=== PATIENT | female | born 1965 | race Caucasian/White ===

== ENCOUNTER → 2016-12-17 | Outpatient (CLI) | payer MEDICAID ==
--- NOTE | 2016-12-22 06:54 | MM ---
Reason for exam: follow-up at short interval from prior study. Last mammogram was performed 7 months ago. History: Family history of breast cancer in maternal grandmother at age 80 and breast cancer in maternal aunt at age 60. Benign left mammotome panel of the left breast, May 31, 2008. Took hormonal contraceptives for 21 years beginning at age 18. Taking other hormone for 22 years beginning at age 20. Physical Findings: Nurse did not find any significant physical abnormalities on exam. MG Diagnostic Mammo RT w CAD CC, MLO, ML, spot compression MLO, and spot compression CC view(s) were taken of the right breast. Prior study comparison: May 08, 2016, right breast US breast RT. May 08, 2016, bilateral MG 3d diag mammo w/cad BUTCH. May 09, 2015, right breast US breast limited RT. May 09, 2015, bilateral MG 3d diag mammo w/cad BUTCH. December 16, 2012, bilateral digital screening mammo w/CAD. The breast tissue is heterogeneously dense. This may lower the sensitivity of mammography. Superior asymmetric density persists at a middle depth. No definite persisting abnormality on additional views. Precautionary 6 month follow up recommended. More vague areas of asymmetric density at the axillary tail remain unchanged from 04/24/15 suggesting a benign etiology. These results were verbally communicated with the patient and result sheet given to the patient on 12/17/16. ASSESSMENT: Probably benign, BI-RAD 3 RECOMMENDATION: Follow-up diagnostic mammogram of both breasts in 6 months. Back on schedule for April 2017.
== END | disposition home or self-care (01) ==
LOC: RADMAMWWP 12:54
PROVIDERS: ATTEND Obstetrics & Gynecology
DX: R92.8 Other abnormal and inconclusive findings on diagnostic imaging of breast (principal)

== ENCOUNTER → 2017-07-07 | Outpatient (CLI) | payer MEDICAID | END | disposition home or self-care (01) | LOC: LABWHC1 09:51 | PROVIDERS: ATTEND Internal Medicine Endocrinology, Diabetes & Metabolism | DX: E03.8 Other specified hypothyroidism (principal) | CPT/HCPCS: 36415; 84443 ==

== ENCOUNTER → 2017-09-09 | Outpatient (CLI) | payer MEDICAID | LOC: LABWHC1 08:36 | PROVIDERS: ATTEND Internal Medicine Endocrinology, Diabetes & Metabolism | DX: E55.9 Vitamin D deficiency, unspecified (principal); E03.8 Other specified hypothyroidism | CPT/HCPCS: 36415; 82306; 84443 ==

== ENCOUNTER → 2017-12-12 | Outpatient (CLI) | payer MEDICAID | END | disposition home or self-care (01) | LOC: LABWHC1 11:35 | PROVIDERS: ATTEND Internal Medicine Endocrinology, Diabetes & Metabolism | DX: E03.8 Other specified hypothyroidism (principal); E55.9 Vitamin D deficiency, unspecified | CPT/HCPCS: 36415; 82306; 84443 ==

== ENCOUNTER → 2018-06-11 | Outpatient (CLI) | payer MEDICAID | END | disposition home or self-care (01) | LOC: LABWHC1 14:30 | PROVIDERS: ATTEND Internal Medicine Endocrinology, Diabetes & Metabolism | DX: E03.8 Other specified hypothyroidism (principal) | CPT/HCPCS: 36415; 84443 ==

== ENCOUNTER → 2018-06-21 | Outpatient (CLI) | payer MEDICAID ==
--- NOTE | 2018-06-22 07:27 | MM ---
Reason for exam: additional evaluation requested from prior study. Last mammogram was performed 1 year and 6 months ago. History: Family history of breast cancer in maternal grandmother at age 80 and breast cancer in maternal aunt at age 60. Benign left mammotome panel of the left breast, May 31, 2008. Took hormonal contraceptives for 21 years beginning at age 18. Taking other hormone for 22 years beginning at age 20. Physical Findings: Nurse did not find any significant physical abnormalities on exam. MG Diagnostic Mammo w CAD BUTCH Bilateral CC and MLO view(s) were taken. Prior study comparison: December 17, 2016, right breast MG diagnostic mammo RT w CAD. May 08, 2016, bilateral MG 3d diag mammo w/cad BUTCH. The breast tissue is heterogeneously dense. This may lower the sensitivity of mammography. Previous mammotome biopsy in the left breast. There is chronic nodularity bilaterally. There is no dominant lesion. No significant new findings when compared with previous films. These results were verbally communicated with the patient and result sheet given to the patient on 06/21/18. ASSESSMENT: Benign, BI-RAD 2 RECOMMENDATION: Follow-up diagnostic mammogram of both breasts in 1 year.
--- NOTE | 2018-06-22 08:50 | BD ---
EXAMINATION TYPE: Axial Bone Density DATE OF EXAM: 06/21/2018 COMPARISON: 2013 CLINICAL HISTORY: post menopausal Height: 5'4 Weight: 161 FRAX RISK QUESTIONS: Secondary Osteoporosis: RISK FACTORS HISTORY OF: Family History of Osteoporosis: y Postmenopausal woman: y MEDICATIONS: Thyroid Medications: Which medication: Levothyroxine How Lon years Additional Medications: Additional History: EXAM MEASUREMENTS: Bone mineral densitometry was performed using the Keypr System. Bone mineral density as measured about the Lumbar spine is: ----- L1-L4(G/cm2): 0.979 T Score Values are as follows: ----- L2: -1.7 ----- L3: -1.3 ----- L4: -2.1 ----- L1-L4: -1.7 Bone mineral density has: Decreased -7.7% since study of: 03/01/2014 Bone mineral density about the R hip (g/cm2): 0.913 Bone mineral density about the L hip (g/cm2): 0.893 T Score values are as follows: -----R Neck: -0.9 -----L Neck: -1.0 -----R Total: -1.2 -----L Total: -1.4 Bone mineral density has: Decreased -1.8% since study of: 03/01/2014 IMPRESSION: Osteopenia (T Score between -2.5 and -1) remains present. Bone density is decreased or diminished fro m prior. There remains slightly increased risk of fracture and the patient may be considered for treatment. Re-Screen 2-5 years. NOTE: T-SCORE=SD OF THE YOUNG ADULT MEAN.
== END | disposition home or self-care (01) ==
LOC: RADMAMWWP 15:39
PROVIDERS: ATTEND Obstetrics & Gynecology
DX: R92.8 Other abnormal and inconclusive findings on diagnostic imaging of breast (principal); Z13.820 Encounter for screening for osteoporosis; M85.80 Other specified disorders of bone density and structure, unspecified site; N95.1 Menopausal and female climacteric states
CPT/HCPCS: 77066; 77080

== ENCOUNTER → 2018-12-20 | Outpatient (CLI) | payer MEDICAID | END | disposition home or self-care (01) | LOC: LABWHC1 14:42 | PROVIDERS: ATTEND Internal Medicine Endocrinology, Diabetes & Metabolism | DX: E03.8 Other specified hypothyroidism (principal); E55.9 Vitamin D deficiency, unspecified | CPT/HCPCS: 36415; 82306; 84443 ==

== ENCOUNTER → 2019-03-28 | Outpatient (CLI) | payer MEDICAID | END | disposition home or self-care (01) | LOC: LABWHC1 13:59 | PROVIDERS: ATTEND Internal Medicine Endocrinology, Diabetes & Metabolism | DX: E03.8 Other specified hypothyroidism (principal); E55.9 Vitamin D deficiency, unspecified | CPT/HCPCS: 36415; 82306; 84443 ==

== ENCOUNTER → 2019-07-05 | Outpatient (CLI) | payer MEDICAID | END | disposition home or self-care (01) | LOC: LABWHC1 15:42 | PROVIDERS: ATTEND Internal Medicine Endocrinology, Diabetes & Metabolism | DX: E55.9 Vitamin D deficiency, unspecified (principal); E03.8 Other specified hypothyroidism | CPT/HCPCS: 36415; 82306; 84439; 84443 ==

== ENCOUNTER → 2019-07-26 | Outpatient (CLI) | payer MEDICAID ==
--- NOTE | 2019-07-27 10:03 | MM ---
Reason for exam: screening (asymptomatic). Last mammogram was performed 1 year and 1 month ago. History: Family history of breast cancer in maternal grandmother at age 80 and breast cancer in maternal aunt at age 60. Benign left mammotome panel of the left breast, May 31, 2008. Took hormonal contraceptives for 21 years beginning at age 18. Taking other hormone for 22 years beginning at age 20. Physical Findings: A clinical breast exam by your physician is recommended on an annual basis and results should be correlated with mammographic findings. MG 3D Screening Mammo W/Cad Bilateral CC and MLO view(s) were taken. Prior study comparison: June 21, 2018, bilateral MG diagnostic mammo w CAD BUTCH. December 17, 2016, right breast MG diagnostic mammo RT w CAD. There are benign appearing round oval circumscribed stable bilateral masses. Benign appearing calcifications in the right breast. No suspicious abnormality. Left biopsy marker noted. No significant changes when compared with prior studies. ASSESSMENT: Benign, BI-RAD 2 RECOMMENDATION: Routine screening mammogram of both breasts in 1 year.
== END | disposition home or self-care (01) ==
LOC: RADMAMWWP 15:19
PROVIDERS: ATTEND Obstetrics & Gynecology
DX: Z12.31 Encounter for screening mammogram for malignant neoplasm of breast (principal); Z80.3 Family history of malignant neoplasm of breast
CPT/HCPCS: 77063; 77067

== ENCOUNTER → 2019-09-22 | Outpatient (CLI) | payer MEDICAID ==
[2019-09-22 20:06] LABS: T4, Free (Free Thyroxine) 1.7 ng/dL (0.80-1.80)
== END | disposition home or self-care (01) ==
LOC: LABWHC1 11:51
PROVIDERS: ATTEND Internal Medicine Endocrinology, Diabetes & Metabolism
DX: E03.8 Other specified hypothyroidism (principal); E55.9 Vitamin D deficiency, unspecified
CPT/HCPCS: 36415; 82306; 84439; 84443

== ENCOUNTER → 2020-02-09 | Outpatient (CLI) | payer MEDICAID ==
--- NOTE | 2020-02-09 09:43 | MR ---
EXAMINATION TYPE: MR lumbar spine wo con DATE OF EXAM: 02/09/2020 COMPARISON: NONE HISTORY: Low Back Pain, lumbar region radiculopathy, muscle spasm, and other intervertebral disc dege neration all per order. Low back pain for 10 months causing pain into both buttocks. TECHNIQUE: Multiplanar, multisequence imaging of the lumbar spine is performed without IV contrast. FINDINGS: Sagittal images of the lumbar spine show vertebral body heights to appear satisfactory. Sli ght grade 1 retrolisthesis L5 on S1 along posterior vertebral body margin Multilevel disc desiccation is present. Moderate disc space narrowing L5-S1 level. The conus medullaris is normal in position an d signal ending at mid L1 level. Few small scattered tiny hemangiomas for reference L4 vertebrae ante riorly sagittal image 8. There is 1.1 cm right S2 Tarlov cyst sagittal image 11. There is heterogeneo us Modic type II endplate changes L5-S1 level right of midline. Axial images show T12-L1, L1-L2, and L2-L3 levels all to appear within normal limits. Axial images at the L3-L4 level show mild facet arthropathy bilaterally. Axial images at the L4-L5 level show mild/moderate broad-based left paracentral disc protrusion minim ally effaces the anterior thecal sac. There is mild facet arthropathy bilaterally. Bilateral neural f oramina are patent. Axial images at the L5-S1 level shows subtle spondylolisthesis with mild broad-based posterior disc p rotrusion. Spinal canal is preserved. Bilateral neural foramina show mild anterior inferior neural fo raminal narrowing. Paraspinal muscle bulk fairly well maintained. There is extrarenal pelvis felt present bilaterally in both kidneys. IMPRESSION: [id number] multilevel degenerative changes mid to lower lumbar spine as detailed ab ove, no definitive exiting nerve impingement identified.
== END | disposition home or self-care (01) ==
LOC: RADMRIMAIN 07:26
PROVIDERS: ATTEND Orthopaedic Surgery Orthopaedic Surgery of the Spine
DX: M47.26 Other spondylosis with radiculopathy, lumbar region (principal); M46.96 Unspecified inflammatory spondylopathy, lumbar region; M43.16 Spondylolisthesis, lumbar region; M62.830 Muscle spasm of back
CPT/HCPCS: 72148

== ENCOUNTER → 2020-03-01 | Outpatient (CLI) | payer MEDICAID | END | disposition home or self-care (01) | LOC: LABWHC1 09:06 | PROVIDERS: ATTEND Pediatrics Pediatric Infectious Diseases | DX: Z03.818 Encounter for observation for suspected exposure to other biological agents ruled out (principal) | CPT/HCPCS: U0003; C9803 ==

== ENCOUNTER → 2020-03-07 | Outpatient (CLI) | payer MEDICAID ==
[2020-03-07 11:02] VITALS: BP 158/85; PULSE 81; RESP 16; TEMP 98
--- NOTE | 2020-03-07 11:49 | P.PAINCN ---
History of Present Illness - Reason for Consult Consult date: 03/07/20 - History of Present Illness Sujey is a very pleasant 54-year-old female presenting today as a new patient consult. She is a nurse in the operating room. She reports that 2 times over the last 6-8 months she's had very severe back pain with lower extremity weakness. She reports that when those events came on that lasted for about 3-5 days when she has severe pain and weakness in her legs. She has seen Dr. Hubbard for evaluation. Order MRI of the lumbar spine which really did not show any severe stenosis. There was some mild disc bulging with facet joint arthropathy. There is no evidence of any severe neural foraminal stenosis or any central canal stenosis. She has a history of urinary incontinence which is been treated well. She has complaints of urinary urgency. She denies any bowel or bladder incontinence in relation to her back pain. At this point she really does not have any back pain. She is physically strong reports she's doing very well but this is worried about this happening again. She denies any neck pain. Denies any upper mid back pain. Denies any numbness tingling in her upper extremities. She denies any family history of any myopathy or any illnesses such as multiple sclerosis or ALS. She does not use any pain medication. She works full-time. Review of Systems Negative except as noted in the HPI Past Medical History Past Medical History: Musculoskeletal Disorder, Thyroid Disorder Additional Past Medical History / Comment(s): HYPOTHYROID. History of Any Multi-Drug Resistant Organisms: None Reported Past Surgical History: Bladder Surgery, Hysterectomy Additional Past Surgical History / Comment(s): COLONOSCOPY, bladder sling Past Anesthesia/Blood Transfusion Reactions: No Reported Reaction Additional Past Anesthesia/Blood Transfusion Reaction / Comm: HAS NEVER HAD GENERAL ANESTHESIA. Smoking Status: Former smoker - Past Family History Father Family Medical History: Prostate Disorder Mother Family Medical History: Cancer Additional Family Medical History / Comment(s): COLON, BONE. Medications and Allergies Home Medications Medication Instructions Recorded Confirmed Type Levothyroxine Sodium [Synthroid] 150 mcg PO DAILY 07/30/15 03/07/20 History Ergocalciferol [Vitamin D2] 50,000 unit PO Q14D 03/02/20 03/07/20 History Allergies Allergy/AdvReac Type Severity Reaction Status Date / Time No Known Allergies Allergy Verified 03/02/20 14:59 Physical Exam Vitals: Vital Signs Temp Pulse Resp BP Pulse Ox 03/07/20 10:57 98.0 F 81 16 158/85 98 PHYSICAL EXAM: Constitutional: Awake and alert no distress Cardiovascular exam: Regular rate, no lower extremity edema, palpable pulses bilaterally Respiratory exam: No audible wheezing, no accessory muscle usage Abdominal exam: Soft nontender Muscular skeletal exam: - Cervical spine: Nontender to palpation bilaterally. Range of motion is not limited. Spurling is negative bilateral. Facet loading is negative bilaterally - Lumbar spine: Preserved lumbar lordosis. No changes in skin. Nontender palpation bilateral. Patient has full range of motion in flexion and extension as well as lateral sidebending. Straight leg raise is negative. Facet loading is negative. Nontender over the SI joints. RICHIE Negative, Gaenselons negative, SI Joint compression negative. Hip range of motion bilaterally is normal. There is no pain with internal/external rotation or extension and flexion. Neuro exam: Normal sensation bilateral upper and lower extremities. Deep tendon reflexes are 2+ bilaterally. Armando's is negative Psychiatric exam: Cooperative, good insight Assessment and Plan Assessment: #1 low back pain #2 possible neurogenic claudication Plan: Had along discussion with patient regarding her symptoms. Thankfully symptoms are not being on too often. She had an MRI of the lumbar spine did not give any insight into what the issue is. I discussed with her that like for her to persist pain a short course of physical therapy to improve her overall strength. She does not to go to therapy for long present time but just enough to get home exercise routines down. She has very strong physically does not exhibit any signs of weakness. Also discussed that since the MRI of the lumbar spine did not show any signs of weakness she may be a candidate for an MRI the thoracic spine to rule out any thoracic pathology which could explain the lower extremity weakness which comes and goes. I've asked the patient follow-up with us as needed and to reach out anyone of the pain physicians on a regular basis if she has questions while in the operating room. PQRS Measure Charge Sheet Measure #130: Documentation of Current Meds in Medical Chart: Patient's medications documented in chart Measure #226: Tobacco Use: Screen & Cessation Intervention: Pt screened for tobacco use AND intervention given Measure #111: Pneumonia Vaccination: Pneumococcal vaccine administered or previously received Measure #47: Advance Care Plan: Advance care planning discussed & documented, plan or surrogate given Measure #412: Opioid Treatment Agreement: Documented signed opioid trtmnt agreemnt min once during opioid trtmnt Measure #408: Opioid Therapy Follow-up Evaluation: Patient had NO f/u eval minimum every 3 months during opioid therapy Measure #317: Preventitive Care & Scrn High Bld Press & F/U: Normal blood pressure, f/u not required Measure #128: Body Mass Index (BMI) Screening & Follow-up: BMI documented ABOVE normal parameters - f/u documented Measure #131: Pain Assessment & Follow-up: Pain positive & plan documented Measure #431: Unhealthy Alcohol Use Preventative Care & Scrn: Patient not identified as an unhealthy alcohol user PQRS Narrative: Smoking Status Former smoker Blood Pressure 158/85 Pain Intensity [None] 0 Scale Used Numeric (1 - 10) Hx Alcohol Use (MH) Yes Home Medications: Ambulatory Orders Levothyroxine Sodium [Synthroid] 150 mcg PO DAILY 07/30/15 Ergocalciferol [Vitamin D2] 50,000 unit PO Q14D 03/02/20
== END | disposition home or self-care (01) ==
LOC: PNWHC3 10:06
PROVIDERS: ATTEND Hospitalist
DX: M54.5 Low back pain (principal); Z79.891 Long term (current) use of opiate analgesic; Z79.890 Hormone replacement therapy; Z79.899 Other long term (current) drug therapy
CPT/HCPCS: 99211

== ENCOUNTER 2020-04-12 09:20 | Day surgery (SDC) | payer MEDICAID ==
[2020-04-06 17:44] VITALS: BMI 26.6
[~2020-04-12 09:20] MED LIST: LACTATED RINGERS 1,000 ML IV SCH
[2020-04-12 09:36] VITALS: RESP 16; TEMP 98.5
[2020-04-12] MEDS ORDERED: LIDOCAINE 1% INJ 10MG/ML (20 ML MDV) ONE (10:05)
[2020-04-12] MEDS ORDERED: PROPOFOL 10 MG/ML 20 ML VIAL IV ONE (10:05)
--- NOTE | 2020-04-12 10:31 | P.PCN ---
Date of Procedure: 04/12/20 Procedure(s) Performed: BRIEF HISTORY: Patient is a 54-year-old pleasant white female scheduled for an elective colonoscopy as a part of screening for colon rectal neoplasia and family history of colon cancer. Her mother was diagnosed with colon cancer at age 60. PROCEDURE PERFORMED: Colonoscopy. PREOPERATIVE DIAGNOSIS: Screening for colon cancer/family history of colon cancer. IV sedation per Anesthesia. PROCEDURE: After informed consent was obtained, the patient, was brought into the endoscopy unit. IV sedation was administered by Anesthesia under continuous monitoring. Digital rectal examination was normal. Initially the Olympus CF-160 flexible video colonoscope was then inserted in the rectum, gradually advanced into the cecum without any difficulty. Careful examination was performed as the scope was gradually being withdrawn. Ileocecal valve and the appendiceal orifice were visualized and appeared normal. Prep was excellent. Mucosa of the cecum, ascending colon, transverse colon, descending colon, sigmoid colon, and rectum appeared normal. Retroflexion was performed in the rectum and no lesions were seen. The patient tolerated the procedure well. IMPRESSION: Normal-appearing colon from rectum to cecum with no evidence of colorectal neoplasia . RECOMMENDATIONS: Findings of this examination were discussed with the patient as well as a family. She was advised to have a repeat screening colonoscopy in 5 years from now because of the family history of colon cancer..
[2020-04-12 11:12] VITALS: BP 149/91; PULSE 68
== END 2020-04-12 11:45 | disposition home or self-care (01) ==
LOC: ORWHC2ENDO 09:20
PROVIDERS: ATTEND Internal Medicine Gastroenterology
DX: Z12.11 Encounter for screening for malignant neoplasm of colon (principal); E07.9 Disorder of thyroid, unspecified; Z79.890 Hormone replacement therapy; Z90.710 Acquired absence of both cervix and uterus; Z80.0 Family history of malignant neoplasm of digestive organs
CPT/HCPCS: J2001; J2704; G0105; 45378

== ENCOUNTER → 2020-06-05 | Outpatient (CLI) | payer MEDICAID ==
--- NOTE | 2020-06-05 18:43 | CONS ---
CONSULTATION REASON FOR CONSULTATION: Sleep apnea. 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 She is feeling tired and fatigued all the time. She is excessively tired and sleepy. Family members have told her that she snores and quits breathing at night. She also wakes up gasping for air and with a choking sensation. She does have nocturia. She wakes up with a dry mouth. At times she is having trouble with concentration and memory and she is waking up very tired during the day. 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 She goes to bed between midnight and 1 a.m. and she wakes up between 5:45 and 6 a.m. in the morning. On weekends she sleeps between 1 a.m. and 10 a.m. She has no other major medical problems or comorbidities. No recent weight gain or weight loss. She prefers to sleep on her side. No history of alcoholism. No sleep paralysis, hallucinations or cataplexy. She is coming in to be further investigated. PAST MEDICAL HISTORY: Hypothyroidism. PAST SURGICAL HISTORY: Past surgical history includes hysterectomy, bladder suspension surgery and colonoscopy. DRUG ALLERGIES: NOT KNOWN. OUTPATIENT MEDICATION: Outpatient medication includes Tirosint 125 mcg p.o. daily and vitamin D2 50,000 units once a month. SOCIAL HISTORY: Nonsmoker. No history of alcoholism. No history of IV drugs. She quit smoking in 1991. FAMILY HISTORY: Positive for sleep apnea in her mother, cancer in her father, and her father has brain cancer. Diabetes in her mother and brother. Restless legs in the brother and hypertension in her mother. REVIEW OF SYSTEMS: Fourteen-point review of systems was done. Positive findings are all mentioned above in the history of present illness. Otherwise it is negative. Positive findings are all mentioned above. No fever. No chills. No constitutional symptoms. No sleepwalking or sleeptalking. No grinding of the teeth. No chronic anxiety or panic attacks. No history of any mental health issues for the time being. PHYSICAL EXAMINATION: BP is 143/88, pulse 81, respirations 12, temperature 98.4, saturation 99% on room air. BMI is 28.3. Neck size 14-1/2 inches. [place] score is 12. Weight is 166, height is 5 feet 4 inches. GENERAL APPEARANCE: Calm, comfortable. HEAD: Atraumatic, normocephalic. NECK: Supple. No JVD. No goiter or neck masses. Mallampati class IV. LUNGS: Clear to auscultation. HEART: Heart sounds are regular rate and rhythm. Normal S1, S2. No S3, S4. No murmurs. ABDOMEN: Soft, nontender. No organomegaly. EXTREMITIES: No edema. No cyanosis or clubbing. NEUROLOGIC: Awake and alert. There is no focal neurological deficit. IMPRESSION: 1. Loud snoring with symptoms to suggest obstructive sleep apnea, including sleep fragmentation, excessive daytime hypersomnia and sleepiness. [place] score is at 12. 2. Mallampati score is IV. 3. Body mass index is 28.3. 4. Hypothyroidism. PLAN: 1. Proceed with a screening polysomnogram. 2. I noted that the patient has a component of insufficient sleep syndrome. The patient needs to extend her sleep hours to an average of 7-8 hours per night. It seems that she is sleeping longer at night on weekends, and this is an obvious sign of insufficient sleep syndrome that needs to be worked on. 3. Further recommendations are to follow based on the results of the sleep study. MMODL / IJN: [id number] /
== END | disposition home or self-care (01) ==
LOC: SLEEP 15:24
PROVIDERS: ATTEND Internal Medicine Critical Care Medicine
DX: G47.33 Obstructive sleep apnea (adult) (pediatric) (principal); E03.9 Hypothyroidism, unspecified
CPT/HCPCS: 99211

== ENCOUNTER → 2020-08-14 | Outpatient (CLI) | payer MEDICAID | END | disposition home or self-care (01) | LOC: LABWHC1 13:36 | PROVIDERS: ATTEND Internal Medicine Endocrinology, Diabetes & Metabolism | DX: E03.8 Other specified hypothyroidism (principal); E55.9 Vitamin D deficiency, unspecified | CPT/HCPCS: 36415; 82306; 84443 ==

== ENCOUNTER → 2020-10-30 | Outpatient (CLI) | payer MEDICAID ==
--- NOTE | 2020-10-30 15:27 | PN ---
PROGRESS NOTE A 55-year-old female patient coming in for a compliance check regarding her new CPAP unit that she was offered after diagnosis of sleep apnea. Note that the patient presented to me with loud snoring and chronic hypersomnia and sleepiness and sleep bed fragmentation. She was found to have moderate severe disease, moderately severe obstructive sleep apnea with an AHI of 28. Nevertheless, during REM sleep, her AHI was as high as 64. As such, the patient was offered CPAP therapy at a pressure of 9 cm of water. She tells me that since she went on a CPAP, her sleep fragmentation has completely recovered to the point where the patient is not waking up at all in the middle of the night and she is not even utilizing the bathroom. She has been averaging around 7.5 hours of CPAP use per night. Her CPAP compliancy for more than 4 hours is 100%. Her leak is in order of 22 L/minute and her AHI is down to 3. She is using an AirFit P10 nasal pillows. On today's evaluation I offered her the AirFit N30 under the nose mask. She did prefer the 2nd over the 1st and she is willing to give it a try. Her [place] score has been a drop and she is still having some movements where she gets tired and sleepy during the day and she is hoping that with this will get better after as the patient gets more and more into her CPAP unit. REVIEW OF SYSTEMS: Fourteen-point review of system was done. Positive findings are all mentioned above history of present illness. Her weight is up by around a few pounds in the order of 5- 6 pounds since her last evaluation. PHYSICAL EXAMINATION: VITAL SIGNS: BP is 152/89, pulse 88, respirations 16, temperature 97.4, and weight is 172 an [place] score of 16. GENERAL APPEARANCE: Calm, comfortable. HEENT: Head atraumatic normocephalic. NECK: Supple Mallampati class 4. There is no goiter or neck masses. LUNGS: Diminished, otherwise clear. HEART: Heart sounds are regular rate and rhythm. Normal S1, S2. No S3, S4. No murmurs. ABDOMEN: Soft nontender, no organomegaly. EXTREMITIES: No edema no cyanosis or clubbing. NEUROLOGIC: Awake alert. There is no focal neurological deficit. IMPRESSION: 1. Obstructive sleep apnea, moderate severe, worse during REM. AHI of 28.3. The patient underwent a successful CPAP titration. 2. Nocturnal oxygen desaturation recovered with CPAP therapy. 3. Sleep fragmentation and a high arousal index improved with CPAP therapy. 4. Hypersomnia, improving. 5. Snoring, recovered. 6. Hypothyroidism. PLAN: 1. Continue CPAP therapy at a pressure of 9. 2. Offered the patient the AirFit N30, nasal pillows, small size. 3. Encouraged losing weight. 4. Monitor hypersomnia. 5. Back in a year's time in followup. She seems to be benefiting from the treatment. The patient is committed also to the treatment. I will see her back in a year's time for further adjustments. Anticipate further improvement as the patient continues to utilize her CPAP unit. MMODL / IJN: [id number] /
== END ==
LOC: SLEEP 14:20
PROVIDERS: ATTEND Internal Medicine Critical Care Medicine
DX: G47.33 Obstructive sleep apnea (adult) (pediatric) (principal); E03.9 Hypothyroidism, unspecified; Z99.89 Dependence on other enabling machines and devices; Z87.891 Personal history of nicotine dependence

== ENCOUNTER → 2020-11-02 | Outpatient (CLI) | payer MEDICAID ==
--- NOTE | 2020-11-07 11:15 | MM ---
Reason for exam: screening (asymptomatic). Last mammogram was performed 1 year and 3 months ago. History: Family history of breast cancer in maternal grandmother at age 80 and breast cancer in maternal aunt at age 60. Benign left mammotome panel of the left breast, May 31, 2008. Took hormonal contraceptives for 21 years beginning at age 18. Taking other hormone for 22 years beginning at age 20. Physical Findings: A clinical breast exam by your physician is recommended on an annual basis and results should be correlated with mammographic findings. MG 3D Screening Mammo W/Cad Bilateral CC and MLO view(s) were taken. Prior study comparison: July 26, 2019, bilateral MG 3d screening mammo w/cad. June 21, 2018, bilateral MG diagnostic mammo w CAD BUTCH. The breast tissue is heterogeneously dense. This may lower the sensitivity of mammography. Bilateral benign calcifications. Previous mammotome biopsy in the left breast. ASSESSMENT: Benign, BI-RAD 2 RECOMMENDATION: Routine screening mammogram of both breasts in 1 year.
== END | disposition home or self-care (01) ==
LOC: RADMAMWWP 13:23
PROVIDERS: ATTEND Obstetrics & Gynecology
DX: Z12.31 Encounter for screening mammogram for malignant neoplasm of breast (principal); Z80.3 Family history of malignant neoplasm of breast
CPT/HCPCS: 77063; 77067

== ENCOUNTER → 2021-02-26 | Outpatient (CLI) | payer MEDICAID | END | disposition home or self-care (01) | LOC: LABWHC1 09:11 | PROVIDERS: ATTEND Internal Medicine Endocrinology, Diabetes & Metabolism | DX: E03.8 Other specified hypothyroidism (principal); E55.9 Vitamin D deficiency, unspecified | CPT/HCPCS: 36415; 82306; 84443 ==

== ENCOUNTER → 2021-09-23 | Outpatient (CLI) | payer MEDICAID | END | disposition home or self-care (01) | LOC: LABWHC1 11:42 | PROVIDERS: ATTEND Internal Medicine Endocrinology, Diabetes & Metabolism | DX: E03.8 Other specified hypothyroidism (principal) | CPT/HCPCS: 36415; 84443 ==

== ENCOUNTER → 2022-03-11 | Outpatient (CLI) | payer MEDICAID ==
--- NOTE | 2022-03-11 15:31 | BD ---
EXAMINATION TYPE: Axial Bone Density DATE OF EXAM: 03/11/2022 COMPARISON: 03-01-14 (PREVIOUS OF 06-21-18 UNAVAILABLE) CLINICAL HISTORY: 56 years year old Female. ICD-10 CODE: M85.88 oth bone disorder Height: 64IN Weight: 173LB FRAX RISK QUESTIONS: Secondary Osteoporosis: RISK FACTORS HISTORY OF: Family History of Osteoporosis: YES Active: YES Postmenopausal woman: YES MEDICATIONS: Thyroid Medications: Which medication: Synthroid How Lon YEARS Additional Medications: VITAMIN D Additional History: EXAM MEASUREMENTS: Bone mineral densitometry was performed using the Drive[employer]SG System. Bone mineral density as measured about the Lumbar spine is: ----- L1-L4(G/cm2): 0.974 T Score Values are as follows: ----- L1: -1.7 ----- L2: -1.1 ----- L3: -1.7 ----- L4: -2.3 ----- L1-L4: -1.7 Bone mineral density has: Decreased -7.9% since study of: 03-01-14 (PREVIOUS OF 06-21-18 UNAVAILABLE) Bone mineral density about the R hip (g/cm2): 0.854 Bone mineral density about the L hip (g/cm2): 0.831 T Score values are as follows: -----R Neck: -1.1 -----L Neck: -1.1 -----R Total: -1.2 -----L Total: -1.4 Bone mineral density has: Decreased -1.5% since study of: 03-01-14 (PREVIOUS OF 06-21-18 UNAVAILABLE) FRAX%s: The graph provided illustrates a 6.4% chance for a major osteoporotic fx and a 0.4% chance fo r the hips probability for fx in 10 years time. IMPRESSION: Osteopenia (T Score between -2.5 and -1). There is slightly increased risk of fracture and the patient may be considered for treatment. Re-Screen 2-5 years. NOTE: T-SCORE=SD OF THE YOUNG ADULT MEAN.
--- NOTE | 2022-03-12 08:17 | MM ---
Reason for Exam: Screening (asymptomatic). Last mammogram was performed 1 year(s) and 5 month(s) ago. Patient History: Menarche at age 11. First Full-Term at age 29. Late child-bearing (after 30). Hysterectomy at age 49. Hormonal Contraceptives, starting at age 18 for 21 years. 05/31/2008, Benign Core Biopsy on the left side. Maternal grandmother had breast cancer, age 80. Maternal aunt had breast cancer, age 60. Risk Values: Dahlia 5 year model risk: 2.1%. NCI Lifetime model risk: 12.5%. Prior Study Comparison: 06/21/2018 Bilateral Diagnostic Mammogram, [facility]. 07/26/2019 Bilateral Screening Mammogram, [facility]. 11/02/2020 Bilateral Screening Mammogram, [facility]. Tissue Density: The breast tissue is heterogeneously dense. This may lower the sensitivity of mammography. Findings: Analyzed By CAD. There is no suspicious group of microcalcifications or new suspicious mass in either breast. Overall Assessment: Benign, BI-RAD 2 Management: Screening Mammogram of both breasts in 1 year. A clinical breast exam by your physician is recommended on an annual basis and results should be correlated with mammographic findings. Electronically signed and approved by: Chad Chen M.D. Radiologis
== END | disposition home or self-care (01) ==
LOC: RADBDWWP 13:18
PROVIDERS: ATTEND Obstetrics & Gynecology
DX: Z12.31 Encounter for screening mammogram for malignant neoplasm of breast (principal); M85.89 Other specified disorders of bone density and structure, multiple sites; Z80.3 Family history of malignant neoplasm of breast
CPT/HCPCS: 77063; 77067; 77080

== ENCOUNTER → 2022-03-24 | Outpatient (CLI) | payer MEDICAID | END | disposition home or self-care (01) | LOC: LABWHC1 13:49 | PROVIDERS: ATTEND Internal Medicine Endocrinology, Diabetes & Metabolism | DX: E03.8 Other specified hypothyroidism (principal); E55.9 Vitamin D deficiency, unspecified | CPT/HCPCS: 36415; 82306; 84443 ==

== ENCOUNTER → 2022-10-01 | Outpatient (CLI) | payer MEDICAID | END | disposition home or self-care (01) | LOC: LABWHC1 09:07 | PROVIDERS: ATTEND Nurse Practitioner Family | DX: E03.8 Other specified hypothyroidism (principal); E55.9 Vitamin D deficiency, unspecified | CPT/HCPCS: 36415; 82306; 84443 ==

== ENCOUNTER → 2023-04-20 | Outpatient (CLI) | payer MEDICAID ==
--- NOTE | 2023-04-21 21:08 | MM ---
Reason for Exam: Screening (asymptomatic). Last mammogram was performed 1 year(s) and 1 month(s) ago. Patient History: Menarche at age 11. First Full-Term at age 29. Late child-bearing (after 29). Hysterectomy at age 49. Hormonal Contraceptives, starting at age 18 for 21 years. 05/31/2008, Benign Core Biopsy on the left side. Maternal grandmother had breast cancer, age 80. Maternal aunt had breast cancer, age 60. Last menstrual period: Risk Values: Dahlia 5 year model risk: 2.2%. NCI Lifetime model risk: 12.2%. Prior Study Comparison: 07/26/2019 Bilateral Screening Mammogram, [facility]. 11/02/2020 Bilateral Screening Mammogram, [facility]. 03/11/2022 Bilateral MG 3D screening mammo w/cad, [facility]. Tissue Density: There are scattered fibroglandular densities. Findings: Analyzed By CAD. Left breast from prior biopsy. In the right upper outer quadrant, there is a focal asymmetry that is becoming more defined/larger and further evaluation is recommended. Otherwise, no significant change. Overall Assessment: Incomplete: need additional imaging evaluation, BI-RAD 0 Management: Special View Mammogram of the right breast. Diagnostic Breast Ultrasound of the right breast. Additional views to include spot 3-D CC, spot 3-D MLO, and 3-D ML views. Targeted right breast ultrasound if any persistent abnormality. [facility] will attempt to contact patient to return for supplemental views and ultrasound if indicated. Electronically signed and approved by: Matt Shin M.D. Radiologist
== END | disposition home or self-care (01) ==
LOC: RADMAMWWP 11:13
PROVIDERS: ATTEND Obstetrics & Gynecology
DX: Z12.31 Encounter for screening mammogram for malignant neoplasm of breast (principal); Z80.3 Family history of malignant neoplasm of breast
CPT/HCPCS: 77063; 77067

== ENCOUNTER → 2023-04-27 | Outpatient (CLI) | payer MEDICAID ==
--- NOTE | 2023-04-27 08:26 | MM ---
Reason for Exam: Additional evaluation requested from abnormal screening. Last screening mammogram was performed less than 1 month ago. Patient History: Menarche at age 11. First Full-Term at age 29. Late child-bearing (after 29). Hysterectomy at age 49. Hormonal Contraceptives, starting at age 18 for 21 years. 05/31/2008, Benign Core Biopsy on the left side. Maternal grandmother had breast cancer, age 80. Maternal aunt had breast cancer, age 60. Risk Values: Dahlia 5 year model risk: 2.2%. NCI Lifetime model risk: 12.2%. Tissue Density: Right: The breast tissue is heterogeneously dense. This may lower the sensitivity of mammography. Findings: Analyzed By CAD. Pattern appears stable. Other may be partial persistence of a nodular density in the upper-outer quadrant right breast. This measures 0.7 cm and is located 7 cm from the nipple. Ultrasound is recommended for additional evaluation. No suspicious groups of microcalcifications, spiculated or lobular masses, architectural distortion or other secondary signs of malignancy are mammographically apparent. Overall Assessment: Incomplete: need additional imaging evaluation, BI-RAD 0 Management: Diagnostic Breast Ultrasound of the right breast. A negative mammogram report should not preclude additional follow up of suspicious palpable abnormalities. Patient should continue monthly self breast exam. A clinical breast exam by your physician is recommended on an annual basis and results should be correlated with mammographic findings. Electronically signed and approved by: William Pavon D.O. Radiologis
--- NOTE | 2023-04-27 08:56 | USB ---
Reason for Exam: Additional evaluation requested from prior study. Patient History: Menarche at age 11. First Full-Term at age 29. Late child-bearing (after 29). Hysterectomy at age 49. Hormonal Contraceptives, starting at age 18 for 21 years. 05/31/2008, Benign Core Biopsy on the left side. Maternal grandmother had breast cancer, age 80. Maternal aunt had breast cancer, age 60. Risk Values: Dahlia 5 year model risk: 2.2%. NCI Lifetime model risk: 12.2%. Technique: Method: Targeted. Prior Study Comparison: 05/08/2016 Right Diagnostic Ultrasound, [facility]. 11/02/2020 Bilateral Screening Mammogram, [facility]. 03/11/2022 Bilateral MG 3D screening mammo w/cad, [facility]. 04/20/2023 Bilateral MG 3D screening mammo w/cad, [facility]. Findings: The upper outer quadrant of the right breast, the axilla of the right breast and the retroareolar of the right breast were scanned. There is a small lymph node with a fatty hilum located in the right breast 10:00 position 7 cm. This appears to correlate with the mammographic abnormality. Lymph node measures 0.6 x 0.7 x 0.4 cm.. Overall Assessment: Benign, BI-RAD 2 Management: Diagnostic Mammogram of the right breast in 6 months. A clinical breast exam by your physician is recommended on an annual basis and results should be correlated with mammographic findings. This exam should not preclude additional follow-up of suspicious palpable abnormalities. Results were given to the patient verbally at the time of exam. Electronically signed and approved by: William Pavon D.O. Radiologis
== END | disposition home or self-care (01) ==
LOC: RADMAMWWP 08:00
PROVIDERS: ATTEND Obstetrics & Gynecology
DX: R92.331 Mammographic heterogeneous density, right breast (principal); Z80.3 Family history of malignant neoplasm of breast
CPT/HCPCS: 77061; 77065

== ENCOUNTER → 2023-05-28 | Outpatient (CLI) | payer MEDICAID | END | disposition home or self-care (01) | LOC: LABWHC1 15:24 | PROVIDERS: ATTEND Internal Medicine Endocrinology, Diabetes & Metabolism | DX: E03.8 Other specified hypothyroidism (principal); E55.9 Vitamin D deficiency, unspecified | CPT/HCPCS: 36415; 82306; 84443 ==

== ENCOUNTER → 2023-11-04 | Outpatient (CLI) | payer MEDICAID ==
--- NOTE | 2023-11-04 13:35 | MM ---
Reason for Exam: Follow-up at short interval from prior study. Last screening mammogram was performed 6 month(s) ago. Patient History: Menarche at age 11. First Full-Term at age 29. Late child-bearing (after 30). Hysterectomy at age 49. Postmenopausal. Hormonal Contraceptives, starting at age 18 for 21 years. 05/31/2008, Benign Core Biopsy on the left side. Maternal grandmother had breast cancer, age 80. Maternal aunt had breast cancer, age 60. Risk Values: Dahlia 5 year model risk: 2.3%. NCI Lifetime model risk: 12.0%. Prior Study Comparison: 03/11/2022 Bilateral MG 3D screening mammo w/cad, [facility]. 04/20/2023 Bilateral MG 3D screening mammo w/cad, [facility]. 04/27/2023 Right MG 3D work up w/cad RT, [facility]. Tissue Density: Right: The breasts are heterogeneously dense, which may obscure small masses. Findings: Analyzed By CAD. Trilobed density measuring 9 mm 8.5 cm from the nipple upper outer quadrant right breast. Ultrasound is recommended. Overall Assessment: Incomplete: need additional imaging evaluation, BI-RAD 0 Management: Diagnostic Breast Ultrasound of the right breast. . Results were given to the patient verbally at the time of exam. Patient should continue monthly self-breast exams. A clinical breast exam by your physician is recommended on an annual basis. This exam should not preclude additional follow-up of suspicious palpable abnormalities. Note on Dahlia scores and lifetime risk: 1. A Dahlia score greater than 3% is considered moderate risk. If this is the case, consider specialist referral to assess eligibility for a risk reducing agent. 2. If overall lifetime risk for the development of breast cancer is 20% or higher, the patient may qualify for future screening with alternating mammogram and breast MRI. Electronically signed and approved by: Chad Chen M.D. Radiologis
--- NOTE | 2023-11-04 14:06 | USB ---
Reason for Exam: Follow-up at short interval from prior study. Patient History: Menarche at age 11. First Full-Term at age 29. Late child-bearing (after 30). Hysterectomy at age 49. Postmenopausal. Hormonal Contraceptives, starting at age 18 for 21 years. 05/31/2008, Benign Core Biopsy on the left side. Maternal grandmother had breast cancer, age 80. Maternal aunt had breast cancer, age 60. Risk Values: Dahlia 5 year model risk: 2.3%. NCI Lifetime model risk: 12.0%. Technique: Method: Targeted. Doppler: Color. Patient Position: Supine. Prior Study Comparison: 03/11/2022 Bilateral MG 3D screening mammo w/cad, [facility]. 04/20/2023 Bilateral MG 3D screening mammo w/cad, [facility]. 04/27/2023 Right MG 3D work up w/cad RT, [facility]. 04/27/2023 Right US breast workup limited RT, [facility]. Findings: The upper outer quadrant of the right breast, the axilla of the right breast and the retroareolar of the right breast were scanned. Cyst in right intramammary lymph node 7 cm from the 9:00 position measuring 1.1 x 0.5 cm. Borderline thickening of the cortex. Six-month follow-up advised. Overall Assessment: Probably benign, BI-RAD 3 Management: Diagnostic Breast Ultrasound of the right breast in 6 months. A clinical breast exam by your physician is recommended on an annual basis and results should be correlated with mammographic findings. This exam should not preclude additional follow-up of suspicious palpable abnormalities. Results were given to the patient verbally at the time of exam. Electronically signed and approved by: Chad Chen M.D. Radiologis
== END | disposition home or self-care (01) ==
LOC: RADMAMWWP 13:07
PROVIDERS: ATTEND Obstetrics & Gynecology
DX: R92.8 Other abnormal and inconclusive findings on diagnostic imaging of breast (principal); Z78.0 Asymptomatic menopausal state; Z80.3 Family history of malignant neoplasm of breast; R92.331 Mammographic heterogeneous density, right breast
CPT/HCPCS: 77061; 77065

== ENCOUNTER → 2023-11-27 | Outpatient (CLI) | payer MEDICAID | END | disposition home or self-care (01) | LOC: LABWHC1 08:56 | PROVIDERS: ATTEND Internal Medicine Endocrinology, Diabetes & Metabolism | DX: E03.8 Other specified hypothyroidism (principal) | CPT/HCPCS: 36415; 84443 ==

== ENCOUNTER → 2024-06-01 | Outpatient (CLI) | payer MEDICAID ==
--- NOTE | 2024-06-01 17:16 | MM ---
Reason for Exam: Screening (asymptomatic). Last mammogram was performed 1 year(s) and 1 month(s) ago. Patient History: Menarche at age 11. First Full-Term at age 29. Late child-bearing (after 30). Hysterectomy at age 49. Postmenopausal. Hormonal Contraceptives, starting at age 18 for 21 years. 05/31/2008, Benign Core Biopsy on the left side. Maternal grandmother had breast cancer, age 80. Maternal aunt had breast cancer, age 60. Risk Values: Dahlia 5 year model risk: 2.3%. NCI Lifetime model risk: 12.0%. Prior Study Comparison: 04/20/2023 Bilateral MG 3D screening mammo w/cad, [facility]. 04/27/2023 Right MG 3D work up w/cad RT, [facility]. 11/04/2023 Right MG 3D diag mammo w/cad RT, [facility]. Tissue Density: There are scattered areas of fibroglandular density. Findings: Analyzed By CAD. Microclip left breast from prior biopsy. Lobulated 1.1 cm mass upper-outer quadrant right breast shows interval enlargement by 1 to 2 mm from immediate prior and greater degree of progressive enlargement from older priors. Otherwise, no significant change. Overall Assessment: Incomplete: need additional imaging evaluation, BI-RAD 0 Management: Diagnostic Breast Ultrasound of the right breast. For potential biopsy given gradual progressive enlargement. [facility] will attempt to contact patient to return for ultrasound. [facility], , 06/01/2024 5:13 PM. Electronically signed and approved by: Matt Shin M.D. Radiologist
== END | disposition home or self-care (01) ==
LOC: RADMAMWWP 14:46
PROVIDERS: ATTEND Obstetrics & Gynecology
DX: Z12.31 Encounter for screening mammogram for malignant neoplasm of breast (principal); Z78.0 Asymptomatic menopausal state; Z80.3 Family history of malignant neoplasm of breast; R92.323 Mammographic fibroglandular density, bilateral breasts; Z98.82 Breast implant status
CPT/HCPCS: 77063; 77067

== ENCOUNTER → 2024-06-07 | Outpatient (CLI) | payer MEDICAID ==
--- NOTE | 2024-06-07 08:26 | USB ---
Reason for Exam: Additional evaluation requested from abnormal screening. Patient History: Menarche at age 11. First Full-Term at age 29. Late child-bearing (after 30). Hysterectomy at age 49. Postmenopausal. Hormonal Contraceptives, starting at age 18 for 21 years. 05/31/2008, Benign Core Biopsy on the left side. Maternal grandmother had breast cancer, age 80. Maternal aunt had breast cancer, age 60. Risk Values: Dahlia 5 year model risk: 2.3%. NCI Lifetime model risk: 12.0%. Technique: Method: Targeted. Prior Study Comparison: 04/27/2023 Right MG 3D work up w/cad RT, [facility]. 11/04/2023 Right MG 3D diag mammo w/cad RT, [facility]. 06/01/2024 Bilateral MG 3D screening mammo w/cad, [facility]. Findings: The upper outer quadrant of the right breast, the axilla of the right breast and the retroareolar of the right breast were scanned. Technique utilized:US breast workup limited RT Image; Ultrasound imaging of: Area of concern, retroareolar region and axilla. New lesion at 11:00 7 cm from the nipple. Multiple anechoic peripherally located possible cysts are seen within this lesion. This has somewhat irregular margins and is not seen on prior measuring up to 11 x 11 x 6 mm. Lymph nodes seen on prior not significantly changed cortices at the upper limits of normal. Overall Assessment: Suspicious, BI-RAD 4 Management: Ultrasound Core Biopsy of the right breast. A clinical breast exam by your physician is recommended on an annual basis and results should be correlated with mammographic findings. This exam should not preclude additional follow-up of suspicious palpable abnormalities. Results were given to the patient verbally at the time of exam. [facility], , 06/07/2024 8:07 AM. Electronically signed and approved by: Howard Knapp DO
== END | disposition home or self-care (01) ==
LOC: RADUSWWP 07:20
PROVIDERS: ATTEND Obstetrics & Gynecology
DX: R92.8 Other abnormal and inconclusive findings on diagnostic imaging of breast (principal); Z78.0 Asymptomatic menopausal state; Z80.3 Family history of malignant neoplasm of breast

== ENCOUNTER → 2024-11-24 | Outpatient (CLI) | payer MEDICAID ==
[2024-11-24 14:59] LABS: Basophils # (A) 0.06 X 10*3/uL (0.00-0.10); Basophils % (A) 0.8 %; Eosinophils # (A) 0.08 X 10*3/uL (0.04-0.35); Eosinophils % (A) 1.1 %; HCT 40.7 % (37.2-46.3); HGB 13.6 g/dL (12.0-15.0); Immature Grans, Automated 0.30 %; Lymphocytes # (A) 2.13 X 10*3/uL (0.90-5.00); Lymphocytes % (A) 30.0 %; MCH 29.2 pg (27.0-32.0); MCHC 33.4 g/dL (32.0-37.0); MCV 87.3 FL (80.0-97.0); Monocytes # (A) 0.52 X 10*3/uL (0.20-1.00); Monocytes % (A) 7.3 %; NRBC Per 100 WBC 0 X 10*3/uL (0.00-0.01); Neutrophils # (A) 4.30 X 10*3/uL (1.80-7.70); Neutrophils % (A) 60.5 %; Platelet Count 274 X 10*3/uL (140-440); RBC 4.66 X 10*6/uL (4.10-5.20); RDW 12.6 % (11.5-14.5); WBC 7.11 X 10*3/uL (4.50-10.00)
[2024-11-24 15:42] LABS: ALT 23 U/L (8-44); AST 18 U/L (13-35); Albumin 4.5 g/dL (3.8-4.9); Albumin/Globulin Ratio 2.14 Ratio (1.60-3.17); Alkaline Phosphatase 73 U/L (41-126); Anion Gap 9.00 mmol/L (4.00-12.00); BUN/Creat Ratio 17.14 Ratio (12.00-20.00); Blood Urea Nitrogen 12.0 mg/dL (9.0-27.0); Calcium 9.5 mg/dL (8.7-10.3); Carbon Dioxide 27.0 mmol/L (21.6-31.8); Chloride 107 mmol/L (96-109); Cholesterol 210.00 mg/dL (0.00-200.00); Ferritin 156.0 ng/mL (10.0-291.0); Globulin 2.1 g/dL (1.6-3.3); Glucose 97 mg/dL (70-110); HDL Cholesterol 55.30 mg/dL (40.00-60.00); Iron 88 UG/DL (50-170); LDL Cholesterol,Calculated 143.5 mg/dL (0.0-131.0); Potassium 4.4 mmol/L (3.5-5.5); Sodium 143 mmol/L (135-145); Total Iron Binding Capacity 344 UG/DL (228-460); Total Protein 6.6 g/dL (6.2-8.2); Triglycerides 55.80 mg/dL (0.00-149.00); VLDL Calculation 11.16 mg/dL (5.00-40.00)
== END | disposition home or self-care (01) ==
LOC: LABWHC1 12:03
PROVIDERS: ATTEND Internal Medicine Geriatric Medicine
DX: G47.33 Obstructive sleep apnea (adult) (pediatric) (principal); E78.5 Hyperlipidemia, unspecified; M85.80 Other specified disorders of bone density and structure, unspecified site; E03.8 Other specified hypothyroidism; E55.9 Vitamin D deficiency, unspecified; R73.9 Hyperglycemia, unspecified; R00.2 Palpitations
CPT/HCPCS: 36415; 80053; 80061; 82306; 82728; 83036; 83540; 83550; 84443; 85025